=== PATIENT | female | born 1960 | race Caucasian/White ===

== ENCOUNTER 2018-03-31 00:05 | Observation (INO) | payer MEDICAID, OTHER, SELFPAY ==
[~2018-03-31] VITALS: Ht 162.6 cm; Wt 66.6 kg
[2018-03-31] MEDS ORDERED: PRED5TAB PO ×2 (00:18→03:16)
[2018-03-31] MEDS ORDERED: SITA25TA PO (00:18)
[2018-03-31] MEDS ORDERED: SIMV10TA3 PO (00:18)
[2018-03-31] MEDS ORDERED: OXYB5TAB PO (00:18)
[2018-03-31] MEDS ORDERED: ASPI-496 PO (00:18)
[2018-03-31] MEDS ORDERED: ASPIRIN 81 MG TABLET CHEW PO ONE (00:30)
[2018-03-31] MEDS ORDERED: SODIUM CHLORIDE FLUSH 10ML SYR IVF ONE (00:30)
[2018-03-31] MEDS ORDERED: NITROGLYCERIN SINGLE TAB 0.4 MG SL PRN (00:30)
[2018-03-31] MEDS ORDERED: NITROGLYCERIN SINGLE TAB 0.4 MG SL ONE (00:34)
[2018-03-31] MEDS ORDERED: ASPIRIN 81 MG TABLET CHEW ONE (00:34)
[2018-03-31 00:40] LABS: BASOPHILS # (AUTO) 0.04 x10^3/uL (0-0.1); BASOPHILS % (AUTO) 0 % (0-1); EOSINOPHILS # (AUTO) 0.05 x10^3/uL (0-0.4); EOSINOPHILS % (AUTO) 0 % (1-7); LYMPHOCYTES # (AUTO) 3.35 x10^3/uL (1-3.4); LYMPHOCYTES % (AUTO) 28 % (22-44); MD NO; MEAN CORPUSCULAR HEMOGLOBIN 29.4 pg (27.0-34.8); MEAN CORPUSCULAR HGB CONC 33.8 g/dL (32.4-35.8); MEAN CORPUSCULAR VOLUME 86.8 fL (80-100); MEAN PLATELET VOLUME 8.5 fL (7.4-10.4); MONOCYTES # (AUTO) 0.75 x10^3/uL (0.2-0.8); MONOCYTES % (AUTO) 6 % (2-9); NEUTROPHILS # (AUTO) 7.81 x10^3/uL (1.8-6.8); NEUTROPHILS % (AUTO) 65 % (42-75); PLATELET COUNT 352 x10^3/uL (130-400); RED BLOOD COUNT 5.07 x10^6/uL (3.82-5.3); RED CELL DISTRIBUTION WIDTH 14.4 % (9.6-15.2)
[2018-03-31 00:48] LABS: INTERNATIONAL NORMALIZED RATIO 0.93 (0.93-1.1); PROTHROMBIN TIME 9.7 Seconds (9.6-11.5)
[2018-03-31 00:50] LABS: ALANINE AMINOTRANSFERASE 25 U/L (12-78); ALBUMIN 3.7 g/dL (3.4-5.0); ANION GAP 10 mmol/L (5-15); CALCIUM 9.3 mg/dL (8.5-10.1); CHLORIDE 109 mmol/L (98-107); CREATININE 1.08 mg/dL (0.55-1.02)
[2018-03-31 00:54] LABS: ALKALINE PHOSPHATASE 75 U/L (45-117); BILIRUBIN,TOTAL 0.7 mg/dL (0.2-1.0); TOTAL PROTEIN 7.4 g/dL (6.4-8.2); TROPONIN I < 0.015 ng/mL (0.000-0.045)
[2018-03-31 02:10] VITALS: BP 128/84
[2018-03-31] MEDS ORDERED: HYDR-2442 PO (03:16)
[2018-03-31] MEDS ORDERED: SODIUM CHLORIDE 0.9% 1,000 ML IV SCH (03:34)
[2018-03-31] MEDS ORDERED: hydrALAzine 20 MG/ML, 1ML IVPush PRN (04:00)
[2018-03-31] MEDS ORDERED: ACETAMINOPHEN 325 MG TABLET PO PRN (04:00)
[2018-03-31] MEDS ORDERED: morphine SULFATE 10 MG/ML, 1ML IVPush PRN (04:00)
[2018-03-31] MEDS ORDERED: NITROGLYCERIN 0.4 MG BOTTLE (25 TABS) SL PRN (04:00)
[2018-03-31] MEDS ORDERED: NICOTINE 7 MG/24 HR PATCH.TD24 TD SCH (04:30)
[2018-03-31] MEDS ORDERED: ONDANSETRON 2MG/ML, 2ML IVPush PRN (05:30)
[2018-03-31] MEDS: KETOROLAC 30 MG/1 ML IV PRN ×3 (05:40→16:20)
[2018-03-31 06:40] LABS: CHOLESTEROL, TOTAL 136 mg/dL (140-239); TRIGLYCERIDES 135 mg/dL (50-200); VLDL CHOLESTEROL 27 mg/dL (0-25)
[2018-03-31 06:43] LABS: CHOL/HDL RATIO 3.6; HDL CHOL % 28 % (28-40); HDL CHOLESTEROL (DIRECT) 38 mg/dL (40-60); LDL CHOLESTEROL,CALCULATED 71 mg/dL (54-169); LDL/HDL RATIO 1.9 (0.5-3.0); TROPONIN I < 0.015 ng/mL (0.000-0.045)
[2018-03-31] MEDS: INSULIN LISPRO 100 UNITS/ML, PEN SQ-INSULIN SCH ×3 (07:00→16:20)
[2018-03-31 07:38] VITALS: BP 98/74
[2018-03-31] MEDS ORDERED: REGADENOSON 0.4 MG/5 ML SYRINGE ONE (08:11)
[2018-03-31] MEDS ORDERED: ASPIRIN 81 MG TABLET CHEW PO SCH (09:00)
[2018-03-31 14:00] VITALS: BP 99/66
[2018-03-31] MEDS ORDERED: SIMVASTATIN 10 MG TABLET PO SCH (21:00)
== END 2018-03-31 17:00 | disposition home or self-care (01) ==
LOC: ED 00:45 → EDIP 01:36 → INTOOBSV 01:36 → 5SO 02:06
PROVIDERS: ADMIT Hospitalist; ATTEND Family Medicine
DX: R07.89 Other chest pain (principal); E11.9 Type 2 diabetes mellitus without complications; F17.210 Nicotine dependence, cigarettes, uncomplicated; Z79.52 Long term (current) use of systemic steroids; Z79.82 Long term (current) use of aspirin; Z82.49 Family history of ischemic heart disease and other diseases of the circulatory system; Z90.710 Acquired absence of both cervix and uterus
CPT/HCPCS: 36415; 71045; 78452; 80053; 80061; 82962; 83880; 84484; 85025; 85379; 85610; 85730; 93005; 93017; 96361; 96372; 96374; 96375; 96376; 99285; A9502; C9898; G0378; J1815; J1885; J2405; J2785; J7030; J7512

== ENCOUNTER 2018-07-09 22:40 | Emergency (ER) | payer MEDICAID ==
[~2018-07-09] VITALS: Ht 162.6 cm; Wt 62.0 kg
[~2018-07-09 22:40] MED LIST: ASPI-496 PO; HYDR-2442 PO; OXYB5TAB PO; PRED5TAB PO; SIMV10TA3 PO; SITA25TA PO
[2018-07-09 22:44] VITALS: BP 138/86
--- NOTE | 2018-07-10 00:57 | NUR ---
PT WAS CALLED X3 AND NOT IN LOBBY
== END 2018-07-10 01:00 | disposition left against medical advice (07) ==
LOC: ED 07-10 00:54
DX: M54.9 Dorsalgia, unspecified (principal); R04.2 Hemoptysis
CPT/HCPCS: 76770; 99284

== ENCOUNTER 2018-09-17 13:29 | Inpatient (IN) | payer MEDICAID ==
[~2018-09-17] VITALS: Ht 162.6 cm; Wt 64.0 kg
--- NOTE | 2018-09-17 13:41 | NUR ---
CLIFFORD GOES BY "[facility]". SHE ARRIVES WITH SON FOR CHEST PAIN. SHE WAS AT HOME AND JUST SPOT CHECKER SHE HAD SUDDEN ONSET CHEST PAIN THAT GOT WORSE AND RADIATED DOWN LEFT ARM TO ARMPIT. SHE FELT WEAK.
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
[2018-09-17] MEDS ORDERED: NITROGLYCERIN SINGLE TAB 0.4 MG SL ONE (14:17)
[2018-09-17] MEDS ORDERED: ASPIRIN 81 MG TABLET CHEW ONE (14:17)
[2018-09-17] MEDS ORDERED: NITROGLYCERIN SINGLE TAB 0.4 MG SL PRN (14:30)
[2018-09-17] MEDS ORDERED: ASPIRIN 81 MG TABLET CHEW PO ONE (14:30)
[2018-09-17] MEDS ORDERED: SODIUM CHLORIDE FLUSH 10ML SYR IVF ONE (14:30)
[2018-09-17 14:41] LABS: BASOPHILS # (AUTO) 0.04 x10^3/uL (0-0.1); BASOPHILS % (AUTO) 1 % (0-1); EOSINOPHILS # (AUTO) 0.14 x10^3/uL (0-0.4); EOSINOPHILS % (AUTO) 2 % (1-7); LYMPHOCYTES # (AUTO) 2.35 x10^3/uL (1-3.4); LYMPHOCYTES % (AUTO) 31 % (22-44); MD NO; MEAN CORPUSCULAR HGB CONC 32.9 g/dL (32.4-35.8); MEAN CORPUSCULAR VOLUME 85.2 fL (80-100); MEAN PLATELET VOLUME 8.7 fL (7.4-10.4); MONOCYTES # (AUTO) 0.54 x10^3/uL (0.2-0.8); MONOCYTES % (AUTO) 7 % (2-9); NEUTROPHILS # (AUTO) 4.53 x10^3/uL (1.8-6.8); NEUTROPHILS % (AUTO) 60 % (42-75); PLATELET COUNT 335 x10^3/uL (130-400); RED CELL DISTRIBUTION WIDTH 14.1 % (9.6-15.2)
[2018-09-17 14:46] LABS: INTERNATIONAL NORMALIZED RATIO 0.89 (0.93-1.1); PROTHROMBIN TIME 9.4 Seconds (9.6-11.5)
[2018-09-17 14:49] LABS: ANION GAP 6 mmol/L (5-15); CALCIUM 8.6 mg/dL (8.5-10.1); CHLORIDE 108 mmol/L (98-107)
[2018-09-17 14:55] LABS: ALANINE AMINOTRANSFERASE 34 U/L (12-78); ALKALINE PHOSPHATASE 90 U/L (45-117); BILIRUBIN,TOTAL 0.7 mg/dL (0.2-1.0); CREATININE 0.82 mg/dL (0.55-1.02); TOTAL PROTEIN 7.5 g/dL (6.4-8.2); TROPONIN I < 0.015 ng/mL (0.000-0.045)
--- NOTE | 2018-09-17 16:05 | NUR ---
SEROLOGY TEACHER HERE TALKING TO PATIENT
--- NOTE | 2018-09-17 16:20 | NUR ---
PATIENT IS AWAITING ER WORKUP. PATIENT IS CALM AND COOPERATIVE IN BED.
[2018-09-17] MEDS ORDERED: BISACODYL 10 MG SUPP PR PRN (17:00)
[2018-09-17] MEDS ORDERED: LABETALOL 5MG/ML, 20ML IVPush PRN (17:00)
[2018-09-17] MEDS ORDERED: NITROGLYCERIN 0.4 MG BOTTLE (25 TABS) SL PRN (17:00)
[2018-09-17] MEDS ORDERED: ONDANSETRON ODT 4 MG PO PRN (17:00)
[2018-09-17] MEDS ORDERED: SODIUM CHLORIDE FLUSH 10ML SYR IVF PRN (17:00)
[2018-09-17] MEDS ORDERED: POLYETHYLENE GLYCOL 17 GM PACKET PO PRN (17:00)
[2018-09-17] MEDS ORDERED: DOCUSATE 100 MG CAPSULE PO PRN (17:00)
[2018-09-17] MEDS ORDERED: ACETAMINOPHEN 325 MG TABLET PO PRN (17:00)
--- NOTE | 2018-09-17 17:08 | NUR ---
GOT PATIENT LIGHT FOOD TRAY SHE IS AWAITING ADMISSION. SHE IS CALM IN BED. CHEST PAIN FEELS BETTER.
[2018-09-17 17:26] LABS: BASOPHILS # (AUTO) 0.03 x10^3/uL (0-0.1); BASOPHILS % (AUTO) 0 % (0-1); EOSINOPHILS # (AUTO) 0.13 x10^3/uL (0-0.4); EOSINOPHILS % (AUTO) 1 % (1-7); LYMPHOCYTES # (AUTO) 1.94 x10^3/uL (1-3.4); LYMPHOCYTES % (AUTO) 22 % (22-44); MD NO; MEAN CORPUSCULAR HGB CONC 33.6 g/dL (32.4-35.8); MEAN CORPUSCULAR VOLUME 86.2 fL (80-100); MONOCYTES # (AUTO) 0.52 x10^3/uL (0.2-0.8); MONOCYTES % (AUTO) 6 % (2-9); NEUTROPHILS # (AUTO) 6.18 x10^3/uL (1.8-6.8); NEUTROPHILS % (AUTO) 70 % (42-75); PLATELET COUNT 336 x10^3/uL (130-400); RED CELL DISTRIBUTION WIDTH 14.3 % (9.6-15.2)
--- NOTE | 2018-09-17 17:27 | NUR ---
CALLED BRITT MILTON FOR REPORT, RN NOT AVAILABLE AT THIS TIME.
[2018-09-17 17:36] LABS: ANION GAP 6 mmol/L (5-15); CALCIUM 8.7 mg/dL (8.5-10.1); CHLORIDE 109 mmol/L (98-107)
[2018-09-17 17:42] LABS: CREATININE 0.83 mg/dL (0.55-1.02); FREE T4 (FREE THYROXINE) 0.87 ng/dL (0.76-1.46); TROPONIN I 0.071 ng/mL (0.000-0.045)
[2018-09-17 18:01] LABS: HEMOGLOBIN A1C 7.1 % (4.2-6.3)
[2018-09-17 18:04] LABS: HCT (SEDRATE) 48.1 % (34.6-47.8)
[2018-09-17 18:16] VITALS: BP 120/81
[2018-09-17] MEDS ORDERED: HYDROcodone/APAP 5/325 TABLET PO PRN (18:30)
[2018-09-17] MEDS ORDERED: TRAZODONE 50MG TABLET PO PRN (18:30)
[2018-09-17] MEDS: GABAPENTIN 300 MG CAPSULE PO PRN (18:36)
[2018-09-17] MEDS ORDERED: ENOXAPARIN 40 MG/0.4 ML SQ SCH (20:00)
[2018-09-17 20:15] VITALS: BP 124/76
[2018-09-17] MEDS ORDERED: SIMVASTATIN 5 MG TABLET ONE (20:16)
[2018-09-17] MEDS: NICOTINE 7 MG/24 HR PATCH.TD24 TD SCH (20:40)
[2018-09-17] MEDS: FAMOTIDINE 20 MG TABLET PO SCH (20:40)
[2018-09-17] MEDS: SIMVASTATIN 10 MG TABLET PO SCH (20:41)
[2018-09-17] MEDS: INSULIN LISPRO 100 UNITS/ML, PEN SQ-INSULIN SCH (20:41)
[2018-09-18] MEDS ORDERED: HEPARIN/LOVENOX MC SCH ×2 (00:30→01:30)
[2018-09-18] MEDS ORDERED: ACETAMINOPHEN 325 MG TABLET PO ONE (01:00)
[2018-09-18] MEDS ORDERED: NITROGLYCERIN OINT 2%, 1GM TP SCH ×2 (01:00→01:02)
[2018-09-18 01:19] VITALS: BP 107/82
[2018-09-18] MEDS ORDERED: HEPARIN 25,000 UNITS/500ML PMX 500 ML IV PRN (01:30)
[2018-09-18] MEDS ORDERED: HEPARIN 5,000 UNITS/ML, 1ML IV ONE (01:30)
[2018-09-18] MEDS ORDERED: HEPARIN 5,000 UNITS/ML, 1ML IV PRN (01:30)
[2018-09-18] MEDS: NITROGLYCERIN OINT 2%, 1GM TP SCH ×2 (01:32→08:42)
[2018-09-18] MEDS: INSULIN LISPRO 100 UNITS/ML, PEN SQ-INSULIN SCH ×4 (07:00→21:28)
[2018-09-18 07:34] VITALS: BP 122/76
[2018-09-18] MEDS: LINAGLIPTIN 5 MG TAB PO SCH (08:42)
[2018-09-18] MEDS: FAMOTIDINE 20 MG TABLET PO SCH ×2 (08:42→21:16)
[2018-09-18] MEDS: ASPIRIN 81 MG TABLET EC PO SCH (08:42)
[2018-09-18] MEDS: OXYBUTYNIN CHLORIDE 5 MG TABLET PO SCH (08:42)
[2018-09-18] MEDS: SODIUM CHLORIDE 0.9% 1,000 ML IV SCH ×2 (11:00→19:00)
[2018-09-18 13:19] VITALS: BP 118/76
[2018-09-18] MEDS ORDERED: VERAPAMIL 2.5 MG/ML, 2ML ONE (13:55)
[2018-09-18] MEDS ORDERED: HEPARIN 1,000 UNITS/ML, 10ML ONE (13:55)
[2018-09-18] MEDS ORDERED: LIDOCAINE 2%, 20ML ONE (13:55)
[2018-09-18] MEDS ORDERED: FENTANYL PF 100 MCG/2ML ONE (13:55)
[2018-09-18] MEDS ORDERED: TICAGRELOR 90 MG TABLET ONE (13:55)
[2018-09-18] MEDS ORDERED: BIVALIRUDIN 250 MG ONE (13:55)
[2018-09-18] MEDS ORDERED: MIDAZOLAM 1 MG/ML, 5ML ONE (13:55)
[2018-09-18] MEDS ORDERED: SODIUM CHLORIDE 0.9% 1,000 ML IV SCH (14:40)
[2018-09-18] MEDS: NICOTINE 7 MG/24 HR PATCH.TD24 TD SCH (16:35)
[2018-09-18 19:01] VITALS: BP 107/78
[2018-09-18] MEDS: GABAPENTIN 300 MG CAPSULE PO PRN (21:15)
[2018-09-18] MEDS: SIMVASTATIN 10 MG TABLET PO SCH (21:28)
[2018-09-19] MEDS: SODIUM CHLORIDE 0.9% 1,000 ML IV SCH (01:12)
[2018-09-19 01:39] VITALS: BP 108/65
[2018-09-19 05:15] LABS: BASOPHILS # (AUTO) 0.05 x10^3/uL (0-0.1); BASOPHILS % (AUTO) 0 % (0-1); EOSINOPHILS # (AUTO) 0.13 x10^3/uL (0-0.4); EOSINOPHILS % (AUTO) 1 % (1-7); LYMPHOCYTES # (AUTO) 2.62 x10^3/uL (1-3.4); LYMPHOCYTES % (AUTO) 24 % (22-44); MD NO; MEAN CORPUSCULAR HEMOGLOBIN 29.3 pg (27.0-34.8); MEAN CORPUSCULAR HGB CONC 33.9 g/dL (32.4-35.8); MEAN CORPUSCULAR VOLUME 86.5 fL (80-100); MEAN PLATELET VOLUME 8.1 fL (7.4-10.4); MONOCYTES # (AUTO) 0.83 x10^3/uL (0.2-0.8); MONOCYTES % (AUTO) 8 % (2-9); NEUTROPHILS # (AUTO) 7.33 x10^3/uL (1.8-6.8); NEUTROPHILS % (AUTO) 67 % (42-75); PLATELET COUNT 305 x10^3/uL (130-400); RED BLOOD COUNT 4.78 x10^6/uL (3.82-5.3); RED CELL DISTRIBUTION WIDTH 14.3 % (9.6-15.2)
[2018-09-19 05:18] LABS: HCT (SEDRATE) 41.3 % (34.6-47.8)
[2018-09-19 05:26] LABS: ANION GAP 3 mmol/L (5-15); CALCIUM 8.8 mg/dL (8.5-10.1); CHLORIDE 107 mmol/L (98-107); CREATININE 0.97 mg/dL (0.55-1.02)
[2018-09-19 07:20] VITALS: BP 101/67
[2018-09-19] MEDS: FAMOTIDINE 20 MG TABLET PO SCH (09:11)
[2018-09-19] MEDS: LINAGLIPTIN 5 MG TAB PO SCH (09:11)
[2018-09-19] MEDS: ASPIRIN 81 MG TABLET EC PO SCH (09:11)
[2018-09-19] MEDS: INSULIN LISPRO 100 UNITS/ML, PEN SQ-INSULIN SCH ×2 (09:12→12:39)
[2018-09-19] MEDS: OXYBUTYNIN CHLORIDE 5 MG TABLET PO SCH (09:12)
[2018-09-19] MEDS ORDERED: METOPROLOL SUCCINATE 25 MG TAB.ER.24H PO SCH (09:30)
[2018-09-19] MEDS ORDERED: CLOPIDOGREL 75 MG TABLET PO SCH (09:30)
[2018-09-19 10:41] VITALS: BP 98/67
[2018-09-19 12:27] VITALS: BP 104/67
[2018-09-19 13:34] VITALS: BP 126/87
[2018-09-19] MEDS ORDERED: METO25TA91 PO (14:55)
[2018-09-19] MEDS ORDERED: CLOP75TA PO (14:55)
[2018-09-19] MEDS ORDERED: FAMO20TA7 PO (14:55)
== END 2018-09-19 16:10 | disposition home or self-care (01) | DRG 287 ==
LOC: ED 14:26 → EDIP 16:47 → 5SO 18:04 → DCLOUNGE 09-19 15:58
PROVIDERS: ADMIT Hospitalist; ATTEND Hospitalist
PROC: 4A023N7 Measurement of Cardiac Sampling and Pressure, Left Heart, Percutaneous Approach (ICD-10-PCS; principal; 2018-09-18)
PROC: B2111ZZ Fluoroscopy of Multiple Coronary Arteries using Low Osmolar Contrast (ICD-10-PCS; 2018-09-18)
PROC: B2151ZZ Fluoroscopy of Left Heart using Low Osmolar Contrast (ICD-10-PCS; 2018-09-18)
PROC: 4A12XSH Monitoring of Cardiac Vascular Perfusion using Indocyanine Green Dye, External Approach (ICD-10-PCS; 2018-09-18)
DX: I24.9 Acute ischemic heart disease, unspecified (principal); I25.10 Atherosclerotic heart disease of native coronary artery without angina pectoris; E11.9 Type 2 diabetes mellitus without complications; E78.5 Hyperlipidemia, unspecified; I10 Essential (primary) hypertension; K21.9 Gastro-esophageal reflux disease without esophagitis; I48.91 Unspecified atrial fibrillation; M19.90 Unspecified osteoarthritis, unspecified site; M32.9 Systemic lupus erythematosus, unspecified; F17.210 Nicotine dependence, cigarettes, uncomplicated; Z90.710 Acquired absence of both cervix and uterus; Z88.2 Allergy status to sulfonamides; Z87.442 Personal history of urinary calculi
CPT/HCPCS: 36415; 71045; 80048; 80053; 82962; 83036; 83880; 84439; 84443; 84484; 85025; 85520; 85610; 85651; 85730; 86140; 93005; 93306; 93458; 99156; 99157; 99285; C1769; C1894; G0378; J0583; J1644; J1650; J2250; J3010; J3490; Q0162; J1815; J7512; Q9967

== ENCOUNTER 2018-12-03 16:00 | Emergency (ER) | payer MEDICAID ==
[~2018-12-03] VITALS: Ht 162.6 cm; Wt 68.0 kg
[~2018-12-03 16:00] MED LIST changes: +CLOP75TA PO; +FAMO20TA7 PO; +METO25TA91 PO
[2018-12-03 16:03] VITALS: BP 117/79
[2018-12-03] MEDS ORDERED: ONDANSETRON ODT 4 MG PO ONE (16:30)
[2018-12-03] MEDS ORDERED: KETOROLAC 30 MG/1 ML IM ONE (16:30)
[2018-12-03] MEDS ORDERED: KETOROLAC 30 MG/1 ML ONE (16:55)
[2018-12-03] MEDS ORDERED: ONDANSETRON ODT 4 MG ONE (16:55)
--- NOTE | 2018-12-03 17:02 | NUR ---
MEDICATED FOR RIGHT FOOT PAIN 4 DAYS
--- NOTE | 2018-12-03 17:19 | NUR ---
PROVIDED CRUTCHES AND ABLE TO AMBULATE WITH THEM. SOME IMPROVEMENT IN PAIN SINCE MEDICATED. DISCHARGE INSTRUCTIONS GIVEN AND TO DISCHARGE DESK VIA W/C
== END 2018-12-03 17:22 | disposition home or self-care (01) ==
LOC: ED 17:10
DX: M79.671 Pain in right foot (principal); I10 Essential (primary) hypertension; I48.91 Unspecified atrial fibrillation; E11.9 Type 2 diabetes mellitus without complications; Z90.710 Acquired absence of both cervix and uterus; F17.200 Nicotine dependence, unspecified, uncomplicated
CPT/HCPCS: 73630; 96372; 99283; J1885; Q0162

== ENCOUNTER 2019-05-27 17:55 | Emergency (ER) | payer MEDICAID ==
[~2019-05-27] VITALS: Ht 162.6 cm; Wt 68.2 kg
[~2019-05-27 17:55] MED LIST changes: -OXYB5TAB PO; +OXYB5TAB2 PO
[2019-05-27 18:40] LABS: RAPID INFLUENZA A Negative (Negative); RAPID INFLUENZA B Negative (Negative)
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
[2019-05-27 18:44] LABS: BASOPHILS # (AUTO) 0.03 x10^3/uL (0-0.1); BASOPHILS % (AUTO) 0 % (0-1); EOSINOPHILS % (AUTO) 1 % (1-7); LYMPHOCYTES # (AUTO) 2.32 x10^3/uL (1-3.4); LYMPHOCYTES % (AUTO) 29 % (22-44); MD NO; MEAN CORPUSCULAR HEMOGLOBIN 29.5 pg (27.0-34.8); MEAN CORPUSCULAR HGB CONC 32.9 g/dL (32.4-35.8); MEAN CORPUSCULAR VOLUME 89.7 fL (80-100); MONOCYTES # (AUTO) 0.66 x10^3/uL (0.2-0.8); MONOCYTES % (AUTO) 8 % (2-9); NEUTROPHILS # (AUTO) 5.03 x10^3/uL (1.8-6.8); NEUTROPHILS % (AUTO) 62 % (42-75); PLATELET COUNT 341 x10^3/uL (130-400); RED BLOOD COUNT 4.85 x10^6/uL (3.82-5.3); RED CELL DISTRIBUTION WIDTH 14.1 % (9.6-15.2)
[2019-05-27] MEDS ORDERED: KETOROLAC 30 MG/1 ML ONE (18:49)
[2019-05-27 18:54] LABS: ANION GAP 6 mmol/L (5-15); CALCIUM 8.7 mg/dL (8.5-10.1); CHLORIDE 110 mmol/L (98-107); CREATININE 0.83 mg/dL (0.55-1.02)
--- NOTE | 2019-05-27 18:54 | NUR ---
PATIENT MEDICATED PER EMAR, TOLERATED, WELL. PROVIDED PATIENT WITH ICE CHIPS. NEEDS ADDRESSED.
[2019-05-27] MEDS ORDERED: KETOROLAC 30 MG/1 ML IM ONE (19:00)
--- NOTE | 2019-05-27 19:32 | NUR ---
Patient/Caregiver given discharge instructions and they have confirmed that they understand the instructions. Patient ambulatory with steady gait.
[2019-05-27 19:33] VITALS: BP 130/74
== END 2019-05-27 19:35 | disposition home or self-care (01) ==
LOC: ED 19:29
DX: J00 Acute nasopharyngitis [common cold] (principal); I48.91 Unspecified atrial fibrillation; J04.0 Acute laryngitis; I10 Essential (primary) hypertension; E11.9 Type 2 diabetes mellitus without complications; F17.200 Nicotine dependence, unspecified, uncomplicated
CPT/HCPCS: 36415; 71046; 80048; 85025; 87400; 93005; 96372; 99284; J1885

== ENCOUNTER 2020-11-11 11:29 | Emergency (ER) | payer MEDICAID ==
[~2020-11-11] VITALS: Ht 162.6 cm; Wt 71.2 kg
[~2020-11-11 11:29] MED LIST changes: -HYDR-2442 PO; +HYDR-3565 PO; +OXYB-39 PO; -OXYB5TAB2 PO; +SIMV10TA18 PO; -SIMV10TA3 PO
[2020-11-11] MEDS ORDERED: HYDROmorphone 1 MG/ML, 1ML INJ ONE (11:54)
[2020-11-11] MEDS ORDERED: ONDANSETRON 2MG/ML, 2ML ONE (11:54)
[2020-11-11] MEDS ORDERED: SODIUM CHLORIDE 0.9% 1,000ML IVBOLUS ONE (12:00)
[2020-11-11] MEDS ORDERED: HYDROmorphone 1 MG/ML, 1ML INJ IV ONE (12:00)
[2020-11-11] MEDS ORDERED: ONDANSETRON 2MG/ML, 2ML IVPush ONE (12:00)
[2020-11-11 12:44] LABS: BASOPHILS % (AUTO) 1 % (0-1); EOSINOPHILS % (AUTO) 2 % (1-7); LYMPHOCYTES % (AUTO) 30 % (22-44); MD NO; MEAN CORPUSCULAR HEMOGLOBIN 28.9 pg (27.0-34.8); MEAN CORPUSCULAR HGB CONC 33.9 g/dL (32.4-35.8); MEAN PLATELET VOLUME 8.4 fL (7.4-10.4); MONOCYTES % (AUTO) 6 % (2-9); NEUTROPHILS % (AUTO) 62 % (42-75); PLATELET COUNT 360 x10^3/uL (130-400); RED BLOOD COUNT 5.04 x10^6/uL (3.82-5.3); RED CELL DISTRIBUTION WIDTH 14.4 % (9.6-15.2)
[2020-11-11 12:51] LABS: ALANINE AMINOTRANSFERASE 40 U/L (12-78); ALBUMIN 3.3 g/dL (3.4-5.0); ANION GAP 6 mmol/L (5-15); CALCIUM 9.2 mg/dL (8.5-10.1); CHLORIDE 105 mmol/L (98-107); CREATININE 0.99 mg/dL (0.55-1.02)
[2020-11-11 12:53] LABS: ALKALINE PHOSPHATASE 110 U/L (45-117); BILIRUBIN,TOTAL 0.3 mg/dL (0.2-1.0)
[2020-11-11] MEDS ORDERED: MAALOX/HYOSCYAMINE/LIDOCAINE 45 ML BTL ONE (13:23)
[2020-11-11 13:26] VITALS: BP 105/49
--- NOTE | 2020-11-11 13:26 | NUR ---
BREAK RN: PT MEDICATED WITH GI COCKTAIL ORDERED. IV FLUIDS COMPLETED. PT TO BE DC'D
[2020-11-11] MEDS ORDERED: MAALOX/HYOSCYAMINE/LIDOCAINE 45 ML BTL PO ONE (13:30)
--- NOTE | 2020-11-11 13:40 | NUR ---
PT STATES "SOME RELIEF" WITH GI COCKTAIL. PT AMB IN ROOM. IV DC'D WITH CANNULA INTACT. REVIEWED DC INSTRUCTIONS WITH PT. UNDERSTANDING VERBALIZED. PT LEFT AMB, GAIT STEADY. PT USING PHONE TO CALL A FRIEND FOR TRANSPORT HOME.
== END 2020-11-11 13:43 | disposition home or self-care (01) ==
LOC: ED 13:20
DX: K29.00 Acute gastritis without bleeding (principal); R10.11 Right upper quadrant pain; R10.13 Epigastric pain; R11.2 Nausea with vomiting, unspecified; I10 Essential (primary) hypertension; E11.9 Type 2 diabetes mellitus without complications; E78.5 Hyperlipidemia, unspecified; F17.210 Nicotine dependence, cigarettes, uncomplicated; Z88.2 Allergy status to sulfonamides
CPT/HCPCS: 36415; 71045; 76700; 80053; 83690; 85025; 96361; 96374; 96375; 99285; J1170; J2405; J7030